=== PATIENT | male | born 1950 | race African-American/Black ===

== ENCOUNTER 2020-04-14 08:58 | Emergency (ER) | payer MEDICARE ==
[2020-04-14 16:20] LABS: SARS-CoV-2 PCR by NAA Not Detected (NotDetected)
== END 2020-04-14 09:34 | disposition home or self-care (01) ==
LOC: ERS 08:58
DX: Z20.822 Contact with and (suspected) exposure to COVID-19 (principal); Z87.891 Personal history of nicotine dependence
CPT/HCPCS: 99283; U0003; U0005; 87635

== ENCOUNTER 2021-07-12 12:56 | Emergency (ER) | payer OTHER, MEDICARE | END 2021-07-12 14:45 | disposition home or self-care (01) | LOC: ERS 12:56 | DX: S16.1XXA Strain of muscle, fascia and tendon at neck level, initial encounter (principal); I10 Essential (primary) hypertension; F17.210 Nicotine dependence, cigarettes, uncomplicated; V43.52XA Car driver injured in collision with other type car in traffic accident, initial encounter | CPT/HCPCS: 72125 ==